=== PATIENT | female | born 1950 | race Asian ===

== ENCOUNTER 2022-01-10 19:03 | Emergency (ER) | payer OTHER ==
[~2022-01-10] VITALS: Ht 157.5 cm; Wt 68.9 kg
[2022-01-10 19:10] VITALS: TEMP 98.5
[2022-01-10 19:48] LABS: PLATELET COUNT 232 K/uL (152-353)
[2022-01-10 19:58] LABS: POTASSIUM 3.4 mmol/L (3.6-5.2)
[2022-01-10 20:16] VITALS: BP 126/60
[2022-01-11] MEDS ORDERED: EUTHYROX25 MCG PO (09:39)
[2022-01-11] MEDS ORDERED: DONEPEZIL HYDRO10 M1 PO (09:39)
[2022-01-11] MEDS ORDERED: MELATONIN5 M2 PO (09:40)
[2022-01-11] MEDS ORDERED: EZETIMIBE/SIMVA1 TA1 PO (09:42)
[2022-01-11] MEDS ORDERED: LORA0.5T17 PO (09:42)
[2022-01-11] MEDS ORDERED: QUETIAPINE50 MG PO (09:43)
[2022-01-11] MEDS ORDERED: TRILEPTAL300 MG PO (09:43)
== END 2022-01-10 20:25 | disposition still patient (30) ==
LOC: ED 19:03
PROVIDERS: Emergency Medicine
DX: F91.8 Other conduct disorders (principal); Z00.8 Encounter for other general examination; E03.8 Other specified hypothyroidism; F41.1 Generalized anxiety disorder
CPT/HCPCS: 36415; 80053; 81002; 85027; 87635; 93005; 99283; U0003